=== PATIENT | female | born 1955 ===

== ENCOUNTER 2017-01-25 12:15 | Inpatient (IN) | payer BC ==
--- NOTE | 2017-01-25 12:49 | ED PDOC ---
Lower Extremity Pain/Injury Time Seen by Provider: 01/25/17 12:29 Chief Complaint (Nursing): Lower Extremity Problem/Injury Chief Complaint (Provider): Lower Extremity Problem/Injury History Per: Patient History/Exam Limitations: no limitations Onset/Duration Of Symptoms: Days (x 1 month) Current Symptoms Are (Timing): Still Present Additional Complaint(s): Andi Mcgarry is a 61 y/o female who was sent to the ED by PMD Dr. Reilly for admission. Patient has been complaining of intractable right hip and leg pain for the past month. Was told she has a deformity at the L4-L5 region of her lumbar spine. PMD: Chino Reilly Past Medical History Reviewed: Historical Data, Nursing Documentation, Vital Signs Vital Signs: Last Vital Signs Temp 98.4 F 01/25/17 12:19 Pulse 64 01/25/17 12:19 Resp 18 01/25/17 12:19 BP 150/93 H 01/25/17 12:19 Pulse Ox 100 01/25/17 12:19 - Medical History PMH: No Chronic Diseases - Family History Family History: States: Unknown Family Hx - Social History Current smoker - smoking cessation education provided: No Alcohol: None Drugs: Denies - Home Medications Home Medications: Ambulatory Orders Medication Instructions Recorded Cholecalciferol (Vitamin D3) 2,000 unit PO HS 01/25/17 [Vitamin D3] Cyclobenzaprine [Flexeril] 10 mg PO HS PRN 01/25/17 Dexamethasone [Decadron] 1 mg PO ASDIR 01/25/17 Olmesartan Medoxomil [Benicar] 20 mg PO HS 01/25/17 traMADol [Ultram] 50 mg PO BID PRN 01/25/17 - Allergies Allergies/Adverse Reactions: Allergies Allergy/AdvReac Type Severity Reaction Status Date / Time No Known Allergies Allergy Verified 01/25/17 12:22 Review of Systems ROS Statement: Except As Marked, All Systems Reviewed And Found Negative Constitutional: Negative for: Fever, Chills Musculoskeletal: Positive for: Back Pain, Leg Pain (Right leg and hip pain) Physical Exam - Reviewed Nursing Documentation Reviewed: Yes Vital Signs Reviewed: Yes - Physical Exam Appears: Positive for: Non-toxic, No Acute Distress Back: Positive for: Vertebral Tenderness, Decreased ROM, Muscle Spasm - Laboratory Results Result Diagrams: 01/25/17 13:01 01/25/17 13:01 - ECG ECG Rhythm: Positive for: Normal QRS, Normal ST Segment, Sinus Bradycardia ( 58bpm) Rate: 58 O2 Sat by Pulse Oximetry: 100 (RA) Pulse Ox Interpretation: Normal - Radiology X-Ray: Interpreted by Me X-Ray Interpretation: No Acute Disease Medical Decision Making Medical Decision Making: Time:12:39 Plan: --EKG --CMP --CBC --PTT --Prothrombin time --Blood type and screen --CXR 2 views --Urinalysis -- Orthopedic consult placed-[facility] --PT to be admitted to [facility] for intractable back pain. pt given torodol IV 30mg. Scribe Attestation: Documented by Meghan Linn, acting as a scribe for Esperanza Nolan PA-C Provider Scribe Attestation: All medical record entries made by the Scribe were at my direction and personally dictated by me. I have reviewed the chart and agree that the record accurately reflects my personal performance of the history, physical exam, medical decision making, and the department course for this patient. I have also personally directed, reviewed, and agree with the discharge instructions and disposition. Disposition - Clinical Impression Clinical Impression: Intractable back pain - Patient ED Disposition Is Patient to be Admitted: Yes - Disposition Disposition Time: 14:24 Condition: STABLE Forms: [facility] ([place]) - Pt Status Changed To: Hospital Disposition Of: Observation
[2017-01-25 13:13] LABS: BASO % 0.4 % (0.0-2.0); EOS % 0.1 % (0.0-4.0); HEMATOCRIT 41.4 % (34.0-47.0); LYMPH # 2.5 K/uL (1.0-4.3); LYMPH % 29.4 % (20.0-40.0); MEAN CELL VOLUME 83.9 fl (81.0-99.0); MEAN CORPUSCULAR HEMOGLOBIN 28.5 pg (27.0-31.0); MONO # 0.4 K/uL (0.0-0.8); MONO % 4.7 % (0.0-10.0); NEUT # 5.5 K/uL (1.8-7.0); NEUT % 65.4 % (50.0-75.0); RED CELL DISTRIBUTION WIDTH 14.4 % (11.5-14.5); WHITE BLOOD COUNT 8.5 K/uL (4.8-10.8)
[2017-01-25 13:19] LABS: ALB/GLOB RATIO 1.5 (1.0-2.1); ALKALINE PHOSPHATASE 84 U/L (38-126); ALT/SGPT 28 U/L (9-52); AST/SGOT 19 U/L (14-36); BILIRUBIN,TOTAL 0.9 mg/dl (0.2-1.3); BLOOD UREA NITROGEN 14 mg/dl (7-17); CALCIUM 10.2 mg/dL (8.4-10.2); CARBON DIOXIDE 26 mmol/L (22-30); CHLORIDE 106 mmol/L (98-107); GFR AFRICAN-AMERICAN > 60; GLUCOSE,RANDOM 98 mg/dL (65-105); POTASSIUM 3.9 MMOL/L (3.6-5.0); SODIUM 143 mmol/l (132-148); TOTAL PROTEIN 8.1 G/DL (6.3-8.2)
[2017-01-25 13:44] LABS: RBC URINE 2 /hpf (0-3); URINE BILIRUBIN NEGATIVE (NEGATIVE); URINE BLOOD NEGATIVE (NEGATIVE); URINE COLOR YELLOW (YELLOW); URINE GLUCOSE (UA) NEG (Normal); URINE KETONE NEGATIVE (NEGATIVE); URINE LEUKOCYTE ESTERASE NEG Leu/uL (Negative); URINE PROTEIN NEGATIVE (NEGATIVE); URINE UROBILINOGEN 0.2-1.0 mg/dL (0.2-1.0); WBC URINE < 1 /hpf (0-5)
[2017-01-25 13:55] LABS: PARTIAL THROMBOPLASTIN TIME 33.8 Seconds (25.6-37.1)
--- NOTE | 2017-01-25 14:35 | RAD ---
HISTORY: medical eval COMPARISON: No prior. TECHNIQUE: Chest PA and lateral FINDINGS: LUNGS: There appears to be some minor linear atelectasis and or scarring left lung base. Lung schaefer are otherwise clear PLEURA: No significant pleural effusion identified. No pneumothorax apparent. CARDIOVASCULAR: Normal. OSSEOUS STRUCTURES: Mild multilevel degenerative spondylosis of the thoracic spine VISUALIZED UPPER ABDOMEN: Normal. OTHER FINDINGS: None. IMPRESSION: Minor linear atelectasis and or scarring left lung base.
[2017-01-25] MEDS ORDERED: Pneumococcal 23-Valent Vaccine IM ONE (18:10)
[2017-01-25] MEDS ORDERED: HYDROmorphone 0.5 mg/0.5 ml ISec IVP PRN (18:30)
[2017-01-26] MEDS: Dextrose 5%/0.45% NS 1,000 ML IV SCH ×2 (06:06→13:20)
--- NOTE | 2017-01-26 07:02 | CP.PCM.HP ---
History of Present Illness - History of Present Illness History of Present Illness: This is a 61 y/o female with hx of HTN , on Benicar who has been fairly stable till few weeks ago,she started having progressive lower back pain eventually causing right lower ext pain . She had sought evaluation and treatment with Phys therapy and chiropractic and was given pain medications but to no avail. Despite all conservative measures, symptoms however worsened and advised MRI which showed advanced degenerative disc disease of the L4L5 and complete dessication. Also noted were two herniated discs in the area. One is a large herniated disc extruding into the right lateral process and markedly truncating into the right ventral thecal sac. She denies having been involved in a car accident or any trauma. 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 Past Medical Hx HTN, hyperlipidemia Present on Admission - Present on Admission Any Indicators Present on Admission: No History of DVT/PE: No History of Uncontrolled Diabetes: No Urinary Catheter: No Decubitus Ulcer Present: No Review of Systems - Musculoskeletal Musculoskeletal: Back Pain, Muscle Weakness, Radiating Pain into Limb Past Patient History - Past Medical History & Family History Past Medical History?: Yes - Past Social History Smoking Status: Never Smoked - CARDIAC Hx Hypertension: Yes - PULMONARY Hx Respiratory Disorders: No - NEUROLOGICAL Hx Neurological Disorder: No - HEENT Hx HEENT Problems: No - RENAL Hx Chronic Kidney Disease: No - ENDOCRINE/METABOLIC Hx Endocrine Disorders: No - HEMATOLOGICAL/ONCOLOGICAL Hx Blood Disorders: No - INTEGUMENTARY Hx Dermatological Problems: No - MUSCULOSKELETAL/RHEUMATOLOGICAL Hx Falls: No - GASTROINTESTINAL Hx Gastrointestinal Disorders: No - GENITOURINARY/GYNECOLOGICAL Hx Genitourinary Disorders: No - PSYCHIATRIC Hx Psychophysiologic Disorder: No Hx Substance Use: No - SURGICAL HISTORY Hx Surgeries: Yes Hx Section: Yes (3) Hx Tubal Ligation: Yes Other/Comment: [place] teeth removed - ANESTHESIA Hx Anesthesia: Yes Hx Anesthesia Reactions: No Meds Allergies/Adverse Reactions: Allergies Allergy/AdvReac Type Severity Reaction Status Date / Time No Known Allergies Allergy Verified 01/25/17 12:22 Physical Exam - Head Exam Head Exam: NORMAL INSPECTION - Eye Exam Eye Exam: Normal appearance - Respiratory Exam Respiratory Exam: Clear to Auscultation Bilateral - Cardiovascular Exam Cardiovascular Exam: REGULAR RHYTHM - GI/Abdominal Exam GI & Abdominal Exam: Normal Bowel Sounds - Neurological Exam Neurological exam: CN II-XII Intact, Oriented x3 - Psychiatric Exam Psychiatric exam: Anxious - Skin Skin Exam: Normal Color Results - Vital Signs Recent Vital Signs: Last Vital Signs Temp 97.4 F L 01/26/17 00:42 Pulse 55 L 01/26/17 00:42 Resp 20 01/26/17 00:42 BP 101/64 01/26/17 00:42 Pulse Ox 98 01/26/17 00:42 - Labs Result Diagrams: 01/25/17 13:01 01/25/17 13:01 Assessment & Plan (1) Lumbar disc herniation with radiculopathy Status: Acute (2) Hypertension Status: Acute (3) Intractable back pain Status: Acute - Assessment and Plan (Free Text) Plan: will keep NPO Labs reviewed IV hydration Pain meds Consult with Dr Acosta Patient will need surgery Medically stable for laminectomy.
[2017-01-26] MEDS ORDERED: Succinylcholine 200 mg/10 ml Inj IV ONE (07:31)
[2017-01-26] MEDS ORDERED: Propofol 10 mg/ml Inj (20 ML) ONE (07:31)
[2017-01-26] MEDS ORDERED: Sevoflurane - Inhalation Anesthetic Liq (250 ml) ONE (07:34)
--- NOTE | 2017-01-26 07:54 | CP.PCM.CON ---
History of Present Illness - History of Present Illness History of Present Illness: Dr. Acosta asked to see this 61 yo female admitted with intractable LBP radiating to right hip down to her calf with a burning sensation,no relief prior with conservative management,difficulty ambulating,ambulates holding on,pt seen in ER in the past and Orthopedist dx with Sciatica and Gluteal spasm,symptoms worsening,pt sent for MRI showing Right HNP at L4-5,images reviewed by Dr. Acosta and pt examined,surgical and non surgical options discussed with pt,due to worsening ability to ambulate, to perform ADL's and work pt agree's to have a proposed Right Decompressive Lumbar Laminectomy L4-5,denies pelvic paresthesias or incontinance. 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 Alcohol: Occasional Drugs: Denies Home Situation {Lives}: With Family Domestic Violence: Negative - CARDIAC Hx Hypertension: Yes - PULMONARY Hx Respiratory Disorders: No - NEUROLOGICAL Hx Neurological Disorder: No - HEENT Hx HEENT Problems: No - RENAL Hx Chronic Kidney Disease: No - ENDOCRINE/METABOLIC Hx Endocrine Disorders: No - HEMATOLOGICAL/ONCOLOGICAL Hx Blood Disorders: No - INTEGUMENTARY Hx Dermatological Problems: No - MUSCULOSKELETAL/RHEUMATOLOGICAL Hx Falls: No - GASTROINTESTINAL Hx Gastrointestinal Disorders: No - GENITOURINARY/GYNECOLOGICAL Hx Genitourinary Disorders: No - PSYCHIATRIC Hx Psychophysiologic Disorder: No Hx Substance Use: No - SURGICAL HISTORY Hx Surgeries: Yes Hx Section: Yes (3) Hx Tubal Ligation: Yes Other/Comment: [place] teeth removed - ANESTHESIA Hx Anesthesia: Yes Hx Anesthesia Reactions: No Meds Home Medications: Home Medication List Medication Instructions Recorded Confirmed Type Methylprednisolone [Medrol Dose 4 mg PO DAILY #21 mg 01/27/17 Rx Pack (21 tabs)] Allergies/Adverse Reactions: Allergies Allergy/AdvReac Type Severity Reaction Status Date / Time No Known Allergies Allergy Verified 01/25/17 12:22 - Medications Medications: Current Medications Hydromorphone HCl (Dilaudid) 1 mg IVP Q4 PRN PRN Reason: Pain, severe (8-10) Last Admin: 01/25/17 23:55 Dose: 1 mg Dextrose/Sodium Chloride (Dextrose 5%/0.45% Ns 1000 Ml) 1,000 mls @ 60 mls/hr IV .[id number] [facility] Stop: 01/26/17 23:59 Last Admin: 01/26/17 06:06 Dose: 60 mls/hr Losartan Potassium (Cozaar) 50 mg PO HS [facility] Last Admin: 01/25/17 21:25 Dose: 50 mg Physical Exam - Constitutional Appears: Well, Non-toxic, No Acute Distress - Head Exam Head Exam: ATRAUMATIC, NORMAL INSPECTION, NORMOCEPHALIC - Eye Exam Eye Exam: EOMI, Normal appearance, PERRL Pupil Exam: NORMAL ACCOMODATION - ENT Exam ENT Exam: Mucous Membranes Moist - Neck Exam Neck exam: Positive for: Normal Inspection - Respiratory Exam Respiratory Exam: Clear to Auscultation Bilateral - Cardiovascular Exam Cardiovascular Exam: REGULAR RHYTHM - GI/Abdominal Exam GI & Abdominal Exam: Normal Bowel Sounds, Soft - Rectal Exam Rectal Exam: Deferred - Extremities Exam Extremities exam: Positive for: normal inspection, pedal pulses present - Back Exam Back exam: vertebral tenderness - Neurological Exam Neurological exam: Alert, Oriented x3 Additional comments: MESA x 4 antigravity limited RLE secondary to pain and weakness,+ 2 DTR's, decreased sensation to right L4-5 dermatome,neg babinski or pelvic paresthesias - Psychiatric Exam Psychiatric exam: Normal Affect, Normal Mood - Skin Skin Exam: Dry, Intact Results - Vital Signs Recent Vital Signs: Last Vital Signs Temp 97.4 F L 01/26/17 00:42 Pulse 55 L 01/26/17 00:42 Resp 20 01/26/17 00:42 BP 101/64 01/26/17 00:42 Pulse Ox 98 01/26/17 00:42 - Labs Result Diagrams: 01/27/17 05:50 01/27/17 05:50 Assessment & Plan - Assessment and Plan (Free Text) Assessment: Lumbar Spondylosis and HNP Right L4-5 with RLE Radiculapathy Plan: pt to have proposed Right Lumbar HemiLaminotomy,Discectomy L4-5,risks and benefits d/w pt,expressed understanding and wishes to proceed.
[2017-01-26] MEDS ORDERED: Absorbable Gelatin Sponge Size 12-7 ONE (07:56)
[2017-01-26] MEDS ORDERED: Bupivacaine HCl 0.25% PF (30 ml) Inj ONE (07:56)
[2017-01-26] MEDS ORDERED: APROTININ/FIBRINOGEN(TISSEEL) ONE (07:57)
[2017-01-26] MEDS ORDERED: Absorbable Gelatin Sponge Size 100 ONE (07:57)
[2017-01-26] MEDS ORDERED: Thrombin Topical 5,000 IU Spray Kit ONE (07:57)
[2017-01-26] MEDS ORDERED: Bacitracin Ointment 30 GM TUBE ONE (07:57)
[2017-01-26] MEDS ORDERED: Sodium Chloride 0.9% 10 ML IV ONE (07:58)
[2017-01-26] MEDS ORDERED: Lidocaine 1% Inj (20ml) ONE (07:59)
[2017-01-26 08:42] LABS: PARTIAL THROMBOPLASTIN TIME 31.3 Seconds (25.6-37.1)
[2017-01-26] MEDS ORDERED: HYDROmorphone 0.5 mg/0.5 ml ISec IVP PRN (09:10)
[2017-01-26] MEDS ORDERED: Lactated Ringer's 1,000 ML IV ONE (09:30)
[2017-01-26] MEDS ORDERED: Rocuronium 10 mg/ml (5 ml) ONE (09:46)
[2017-01-26] MEDS ORDERED: Sodium Chloride 0.9% 200 ML IV ONE (09:50)
[2017-01-26] MEDS ORDERED: Dexamethasone 4 mg/1 ml ONE (10:20)
[2017-01-26] MEDS ORDERED: HEMOSTATIC MATRIX 10 ML DIS.NEEDLE TOP ONE (10:24)
[2017-01-26] MEDS ORDERED: Neostigmine Methylsulfate 3mg/3ml Syringe IV ONE (10:56)
[2017-01-26] MEDS ORDERED: Neostigmine Methylsulfate 2 MG/2 ML ML IV ONE (10:56)
[2017-01-26] MEDS ORDERED: Desflurane Inhalation Anesthetic Liq (240 ml) ONE (11:05)
[2017-01-26] MEDS ORDERED: Naloxone 0.4 mg/ml Inj (Adult) ONE (11:11)
--- NOTE | 2017-01-26 11:43 | RAD ---
PROCEDURE: Intraoperative Fluoroscopy. HISTORY: LUMBAR MICRO DISCECTOMY/LAMINECTOMY FINDINGS: Fluoroscopic assistance was provided. 10.8 seconds fluoroscopy time utilized. Radiation dose = 8.28 mGy Please refer to the operative report for additional details
[2017-01-26] MEDS ORDERED: Oxycodone/Acetaminophen 5/325 mg Tab PO PRN (13:15)
[2017-01-26] MEDS: Dexamethasone 4 MG in Sodium Chloride 0.9% 50 ML IVPB SCH ×2 (16:51→21:48)
[2017-01-26] MEDS ORDERED: ceFAZolin 1 GM in Sodium Chloride 0.9% 100 ML IVPB ONE (17:00)
--- NOTE | 2017-01-27 00:15 | CARD ---
APPROVED REPORT EKG Measurement Heart [id number] <Conclusion> Sinus bradycardia Minimal voltage criteria for LVH, may be normal variant Borderline ECG
[2017-01-27] MEDS ORDERED: ceFAZolin 1 GM in Sodium Chloride 0.9% 100 ML IVPB ONE (01:00)
[2017-01-27] MEDS: Dexamethasone 4 MG in Sodium Chloride 0.9% 50 ML IVPB SCH ×2 (04:35→10:13)
[2017-01-27 06:18] LABS: HEMATOCRIT 36.9 % (34.0-47.0); MEAN CELL VOLUME 83.7 fl (81.0-99.0); MEAN CORPUSCULAR HEMOGLOBIN 28.4 pg (27.0-31.0); MEAN CORPUSCULAR HGB CONC 33.9 g/dL (33.0-37.0); RED CELL DISTRIBUTION WIDTH 14.3 % (11.5-14.5); WHITE BLOOD COUNT 12.8 K/uL (4.8-10.8)
[2017-01-27 06:47] LABS: BLOOD UREA NITROGEN 9 mg/dl (7-17); CALCIUM 9.3 mg/dL (8.4-10.2); CARBON DIOXIDE 23 mmol/L (22-30); CHLORIDE 107 mmol/L (98-107); GFR AFRICAN-AMERICAN > 60; GLUCOSE,RANDOM 142 mg/dL (65-105); SODIUM 140 mmol/l (132-148)
--- NOTE | 2017-01-27 08:11 | OP ---
PROCEDURE DATE: 01/26/2017 PREOPERATIVE DIAGNOSIS: Lumbar herniated disk at L4-L5 on the right side. POSTOPERATIVE DIAGNOSIS: Lumbar herniated disk at L4-L5 on the right side. PROCEDURE: Right L4-L5 hemilaminotomy, medial facetectomy, removal of extruded disk fragment. Fluoroscopy has been used. Microscope has been used. SURGEON: Campbell Acosta MD AG SERVICE MANAGER: Demetra Ramos, physician surveyor instrument assistant who stayed throughout the case from the beginning to the end, helped me to perform the surgery. DESCRIPTION OF PROCEDURE: The patient was brought to the operating room, anesthetized with general endotracheal anesthesia, placed in a prone position on a Yony frame. Care was taken to protect all pressure points. Back of the lumbar area thoroughly prepped and draped in sterile manner after marking the skin lesions for lumbar laminectomy at L4-L5. After prepping and draping the area, skin had been incised. Bleeding skins had been controlled with bipolar entertainment musician. After using a Bovie entertainment musician, the paraspinal muscles have been detached, attachments of spinous process, lamina of L4-L5 on the right side. A Daina retractor has been applied to alter the facet joint of L4-L5 and fluoroscopy has been used in order to confirm this level. Under microscopic examination, the lamina of L4-L5, medial part of the facets of L4-L5 have been drilled. Drilling was continued. Drilled the top and bottom of the ligamentum flavum has seen. Drilling was also continued on the middle part of the facets until the turn of ligamentum flavum has been seen. Once this has been , medial part of the facets and ligamentum flavum has been removed. Under microscopic examination, tube has been retracted medially next to the pedicle of L5 annulus has been incised. There was a large fragment of multiple disk fragments noted in this area. All this has been removed. Nerve has been decompressed. After that, hemostasis was best achieved. Fascia across the interspinous ligaments, spinous process with 1-Vicryl, subcutaneous tissue with 3-Vicryl. Skin had been closed with intradermal 3 Vicryl stitches. The patient tolerated the procedure. After procedure, mobilized to recovery room in stabilized condition. Campbell Acosta MD [facility] # [id number]
[2017-01-27 08:45] VITALS: RESP 20
[2017-01-27 08:46] VITALS: BP 116/67; PULSE 71; TEMP 98.3; O2SAT 98
[2017-01-27] MEDS ORDERED: Enoxaparin 40 mg Syringe SC SCH (10:00)
--- NOTE | 2017-01-27 15:33 | CP.PCM.DIS ---
Provider - Provider Date of Admission: 01/25/17 13:08 Attending physician: Chino Reilly MD Time Spent in preparation of Discharge (in minutes): 35 Diagnosis - Discharge Diagnosis (1) Lumbar disc herniation with radiculopathy Status: Resolved Comment: s/p laminectomy Hospital Course - Lab Results Lab Results: Most Recent Lab Values WBC 12.8 K/uL (4.8-10.8) H D 01/27/17 05:50 RBC 4.41 Mil/uL (3.80-5.20) 01/27/17 05:50 Hgb 12.5 g/dL (12.0-16.0) 01/27/17 05:50 Hct 36.9 % (34.0-47.0) 01/27/17 05:50 MCV 83.7 fl (81.0-99.0) 01/27/17 05:50 MCH 28.4 pg (27.0-31.0) 01/27/17 05:50 MCHC 33.9 g/dL (33.0-37.0) 01/27/17 05:50 RDW 14.3 % (11.5-14.5) 01/27/17 05:50 Plt Count 198 K/uL (130-400) 01/27/17 05:50 MPV 9.0 fl (7.2-11.7) 01/25/17 13:01 Neut % (Auto) 65.4 % (50.0-75.0) 01/25/17 13:01 Lymph % (Auto) 29.4 % (20.0-40.0) 01/25/17 13:01 [place] % (Auto) 4.7 % (0.0-10.0) 01/25/17 13:01 Eos % (Auto) 0.1 % (0.0-4.0) 01/25/17 13:01 Baso % (Auto) 0.4 % (0.0-2.0) 01/25/17 13:01 Neut # 5.5 K/uL (1.8-7.0) 01/25/17 13:01 Lymph # 2.5 K/uL (1.0-4.3) 01/25/17 13:01 [place] # 0.4 K/uL (0.0-0.8) 01/25/17 13:01 Eos # 0.0 K/uL (0.0-0.7) 01/25/17 13:01 Baso # 0.0 K/uL (0.0-0.2) 01/25/17 13:01 PT 11.6 Seconds (9.8-13.1) 01/26/17 08:00 INR 1.1 (0.9-1.2) 01/26/17 08:00 APTT 31.3 Seconds (25.6-37.1) 01/26/17 08:00 Sodium 140 mmol/l (132-148) 01/27/17 05:50 Potassium 4.0 MMOL/L (3.6-5.0) 01/27/17 05:50 Chloride 107 mmol/L (98-107) 01/27/17 05:50 Carbon Dioxide 23 mmol/L (22-30) 01/27/17 05:50 Anion Gap 14 (10-20) 01/27/17 05:50 BUN 9 mg/dl (7-17) 01/27/17 05:50 Creatinine 0.6 mg/dL (0.7-1.2) L 01/27/17 05:50 Est GFR ( Amer) > 60 01/27/17 05:50 Est GFR (Non-Af Amer) > 60 01/27/17 05:50 Random Glucose 142 mg/dL (65-105) H 01/27/17 05:50 Calcium 9.3 mg/dL (8.4-10.2) 01/27/17 05:50 Total Bilirubin 0.9 mg/dl (0.2-1.3) 01/25/17 13:01 AST 19 U/L (14-36) 01/25/17 13:01 ALT 28 U/L (9-52) 01/25/17 13:01 Alkaline Phosphatase 84 U/L (38-126) 01/25/17 13:01 Total Protein 8.1 G/DL (6.3-8.2) 01/25/17 13:01 Albumin 4.8 g/dL (3.5-5.0) 01/25/17 13:01 Globulin 3.2 gm/dL (2.2-3.9) 01/25/17 13:01 Albumin/Globulin Ratio 1.5 (1.0-2.1) 01/25/17 13:01 Urine Color Yellow (YELLOW) 01/25/17 13:08 Urine Clarity Clear (Clear) 01/25/17 13:08 Urine pH 6.0 (5.0-8.0) 01/25/17 13:08 Ur Specific [place] 1.014 (1.003-1.030) 01/25/17 13:08 Urine Protein Negative mg/dL (NEGATIVE) 01/25/17 13:08 Urine Glucose (UA) Neg mg/dL (Normal) 01/25/17 13:08 Urine Ketones Negative mg/dL (NEGATIVE) 01/25/17 13:08 Urine Blood Negative (NEGATIVE) 01/25/17 13:08 Urine Nitrate Negative (NEGATIVE) 01/25/17 13:08 Urine Bilirubin Negative (NEGATIVE) 01/25/17 13:08 Urine Urobilinogen 0.2-1.0 mg/dL (0.2-1.0) 01/25/17 13:08 Ur Leukocyte Esterase Neg [place]/uL (Negative) 01/25/17 13:08 Urine RBC (Auto) 2 /hpf (0-3) 01/25/17 13:08 Urine Microscopic WBC < 1 /hpf (0-5) 01/25/17 13:08 Ur Squamous Epith Cells < 1 /hpf (0-5) 01/25/17 13:08 Blood Type O POSITIVE 01/25/17 13:03 Antibody Screen Negative 01/25/17 13:03 BBK History Checked No verified bt 01/25/17 13:03 - Hospital Course Hospital Course: Patient seen and examined this AM. 61 year old female with hx of htn s/p laminectomy today. Feeling well. Dressing clean dry and intact. No complaints offered. Patient awaiting back brace. Will follow up with Dr. Reilly on Monday. - Date & Time of H&P Date of H&P: 01/26/17 Time of H&P: 06:52 Discharge Exam - Head Exam Head Exam: NORMAL INSPECTION - Eye Exam Eye Exam: EOMI, Normal appearance, PERRL - ENT Exam ENT Exam: Mucous Membranes Moist - Respiratory Exam Respiratory Exam: UNREMARKABLE - Cardiovascular Exam Cardiovascular Exam: REGULAR RHYTHM - GI/Abdominal Exam GI & Abdominal Exam: Unremarkable - Back Exam Additional comments: abdominal binder in place, dressing visualized, clean, dry and intact Discharge Plan - Discharge Medications Prescriptions: Methylprednisolone [Medrol Dose Pack (21 tabs)] 4 mg PO DAILY #21 mg - Follow Up Plan Condition: STABLE Disposition: HOME/ ROUTINE Instructions: Laminectomy (DC), Back Pain (GEN) Additional Instructions: [facility] [phone] Monitor Tech: Aiden to be fitted and delivered on MondayJanuary 31. Referrals: Campbell Acosta MD [Staff Provider] - Chino Reilly MD [Staff Provider] -
== END 2017-01-27 16:27 | disposition home or self-care (01) | DRG 520 ==
LOC: H.ER 12:15 → H.ERHOLD 13:08 → H.MEDSURG1 17:58
PROVIDERS: ADMIT Family Medicine; ATTEND Family Medicine
PROC: 00NY3ZZ Release Lumbar Spinal Cord, Percutaneous Approach (ICD-10-PCS; principal; 2017-01-26 09:45)
DX: M51.16 Intervertebral disc disorders with radiculopathy, lumbar region (principal); I10 Essential (primary) hypertension; Z98.51 Tubal ligation status; E78.5 Hyperlipidemia, unspecified; M47.26 Other spondylosis with radiculopathy, lumbar region

== ENCOUNTER 2017-02-05 11:42 | Observation (INO) | payer BC ==
--- NOTE | 2017-02-05 12:29 | ED PDOC ---
HPI: General Adult Time Seen by Provider: 02/05/17 12:03 Chief Complaint (Nursing): Abnormal Skin Integrity Chief Complaint (Provider): Abnormal Skin Integrity History Per: Patient History/Exam Limitations: no limitations Current Symptoms Are (Timing): Still Present Additional Complaint(s): 61 y/o female presents to the emergency department with a complaint of a drainage from an incision located to the lower back after laminectomy procedure that was completed about 10 days ago. Patient was wearing a brace that was irritating her back and progressively became worse. States she tried calling surgeon for advise but they never called her back. Denies pain or fever. Past Medical History Reviewed: Historical Data, Nursing Documentation, Vital Signs - Medical History PMH: HTN Denies: Chronic Kidney Disease - Family History Family History: States: Unknown Family Hx - Home Medications Home Medications: Ambulatory Orders Medication Instructions Recorded Cholecalciferol (Vitamin D3) 2,000 unit PO HS 01/25/17 [Vitamin D3] Cyclobenzaprine [Flexeril] 10 mg PO HS PRN 01/25/17 Olmesartan Medoxomil [Benicar] 20 mg PO HS 01/25/17 traMADol [Ultram] 50 mg PO BID PRN 01/25/17 Methylprednisolone [Medrol Dose 4 mg PO DAILY #21 mg 01/27/17 Pack (21 tabs)] Cephalexin [cephalexin] 500 mg PO QID #28 cap 02/05/17 - Allergies Allergies/Adverse Reactions: Allergies Allergy/AdvReac Type Severity Reaction Status Date / Time No Known Allergies Allergy Verified 01/25/17 12:22 Review of Systems ROS Statement: Except As Marked, All Systems Reviewed And Found Negative Constitutional: Negative for: Fever Musculoskeletal: Positive for: Other (Brace was irritating her back. Drainage from incision located to the lower back. ). Negative for: Back Pain (Brace was irritating her back. Drainage from incision located to the lower back. ) Physical Exam - Reviewed Nursing Documentation Reviewed: Yes Vital Signs Reviewed: Yes - Physical Exam Appears: Positive for: Non-toxic, No Acute Distress Head Exam: Positive for: ATRAUMATIC, NORMAL INSPECTION, NORMOCEPHALIC Skin: Positive for: Normal Color, Warm, Dry Back: Positive for: Other (Lower back midline incision noted with serosanguineous drainage. No erythema, induration, or fluctuance. Minuscule wound dehiscence noted to the lower region of the incision. ). Negative for: Normal Inspection Neurologic/Psych: Positive for: Alert, Oriented (x3) - Laboratory Results Result Diagrams: 02/05/17 12:50 02/05/17 12:50 Medical Decision Making Medical Decision Making: Time: 12:22 Initial impression: Initial plan: --Lumbar Spine w. contrast CT --CMP --CBC w/ diff --Reevaluation Time: 1200 --Admit to hospital routine: On ED OBS for back pain Any further documentation will be included within ED Obs section of chart. Scribe Attestation: Documented by Elizabeth Magaña, acting as a scribe for Leanne Singh MD. Provider Scribe Attestation: All medical record entries made by the Scribe were at my direction and personally dictated by me. I have reviewed the chart and agree that the record accurately reflects my personal performance of the history, physical exam, medical decision making, and the department course for this patient. I have also personally directed, reviewed, and agree with the discharge instructions and disposition. ED OBSERVATION Discharge: Yes Date of observation admission: 02/05/17 Time of observation admission: 12:00 - Observation admission statement Patient is being placed in observation because:: back pain - Goals of Observation Goals of observation are:: resolution of symptoms - Progress Note Progress Note: Time: 14:54 --Lumbar Spine CT FINDINGS: VERTEBRAE: Unremarkable. No fracture. Normal alignment. DISCS/SPINAL CANAL/NEURAL FORAMINA: L1-2: Unremarkable. L2-3: Unremarkable. L3-4: Unremarkable. L4-5: Postoperative changes, disc space narrowing at this level is mild, this appears at the site of the discectomy and veronica laminectomy. L5-S1: Broad based bulging annulus without focal disc herniation. PARASPINAL SOFT TISSUES: Asymmetry of the paraspinous soft tissue muscles on the right compared to the left. This extends from L3 through L5. This includes paraspinous muscle asymmetry, air within the soft tissues at the site of the laminectomy, extension to the subcutaneous tissues including a track extending to the skin surface. Hounsfield unit values of fluid less than 10. The well-formed fluid collections subcutaneous spaces interposed between this paraspinous muscle and skin measures 2 x 3.8 cm. This terminates in the skin has a small tract. Faint contrast enhancement at the level of L5-S1 to the left of the midline without well-formed collection. This likely represents a sequela of prior surgery. There is no compelling evidence for diskitis/osteomyelitis as the bony endplates are preserved, the there is disc space narrowing at L4-5. OTHER FINDINGS: None. IMPRESSION: Postoperative changes following veronica laminectomy at L4-5 and micro discectomy. This includes asymmetry, edema within the paraspinous soft tissues on the right. This extends to a subcutaneous fluid collection mean Hounsfield unit values less than 10. This subsequently extends as a faint sinus tract to the skin surface. No evidence of discitis/osteomyelitis on this contrast-enhanced CT scan of the lumbar spine Communication of results: I discussed findings directly with the attending physician in the emergency room Leanne Gottlieb M.D. at 14:43. Time: 15:09 --Spoke to who informed results to me and recommended Ancef here and discharge with Keflex. --Tell patient "not to worry about it" and to keep changing the dressing. Follow up with him on 02/08/2017. --Ancef 1 gm IV 02/05/17 16:30 --Patient resting comfortably. Disposition - Clinical Impression Clinical Impression: Wound drainage - Disposition Disposition Time: 16:54 Condition: STABLE
[2017-02-05 13:03] LABS: BASO # 0.1 K/uL (0.0-0.2); BASO % 0.8 % (0.0-2.0); EOS # 0.1 K/uL (0.0-0.7); EOS % 1.4 % (0.0-4.0); HEMATOCRIT 40.3 % (34.0-47.0); LYMPH # 3.2 K/uL (1.0-4.3); LYMPH % 37.4 % (20.0-40.0); MEAN CELL VOLUME 83.6 fl (81.0-99.0); MEAN CORPUSCULAR HEMOGLOBIN 28.2 pg (27.0-31.0); MEAN CORPUSCULAR HGB CONC 33.8 g/dL (33.0-37.0); MEAN PLATELET VOLUME 8.3 fl (7.2-11.7); MONO # 0.6 K/uL (0.0-0.8); MONO % 6.5 % (0.0-10.0); NEUT # 4.6 K/uL (1.8-7.0); NEUT % 53.9 % (50.0-75.0); RED CELL DISTRIBUTION WIDTH 14.3 % (11.5-14.5); WHITE BLOOD COUNT 8.6 K/uL (4.8-10.8)
[2017-02-05 13:18] LABS: ALB/GLOB RATIO 1.3 (1.0-2.1); ALKALINE PHOSPHATASE 94 U/L (38-126); ALT/SGPT 27 U/L (9-52); AST/SGOT 23 U/L (14-36); BLOOD UREA NITROGEN 14 mg/dl (7-17); CALCIUM 9.5 mg/dL (8.4-10.2); CARBON DIOXIDE 26 mmol/L (22-30); CHLORIDE 107 mmol/L (98-107); GFR AFRICAN-AMERICAN > 60; GLUCOSE,RANDOM 100 mg/dL (65-105); POTASSIUM 4.4 MMOL/L (3.6-5.0); SODIUM 141 mmol/l (132-148); TOTAL PROTEIN 7.2 G/DL (6.3-8.2)
[2017-02-05] MEDS ORDERED: Sodium Chloride 0.9% 50 ML IV ONE (13:34)
[2017-02-05] MEDS ORDERED: Iohexol 300 100 ML IJ ONE (13:34)
--- NOTE | 2017-02-05 14:56 | CT ---
PROCEDURE: CT Lumbar Spine without contrast HISTORY: Serous Drainage s/p laminectomy. Otherwise no complaints common no headache or other findings on physical examination per my discussion with the attending physician in the emergency department at the time of the verbal communication of results. Relevant surgical history: 01/26/2017 discectomy and laminectomy COMPARISON: None. TECHNIQUE: Axial computed tomography images were obtained of the lumbar spine without the use of intravenous contrast. Coronal and sagittal reformatted images were created and reviewed. 95 cc Omnipaque 300 administered. Radiation dose: Total exam DLP = 1359.65 mGy-cm. This CT exam was performed using one or more of the following dose reduction techniques: Automated exposure control, adjustment of the mA and/or kV according to patient size, and/or use of iterative reconstruction technique. FINDINGS: VERTEBRAE: Unremarkable. No fracture. Normal alignment. DISCS/SPINAL CANAL/NEURAL FORAMINA: L1-2: Unremarkable. L2-3: Unremarkable. L3-4: Unremarkable. L4-5: Postoperative changes, disc space narrowing at this level is mild, this appears at the site of the discectomy and veronica laminectomy. L5-S1: Broad based bulging annulus without focal disc herniation. PARASPINAL SOFT TISSUES: Asymmetry of the paraspinous soft tissue muscles on the right compared to the left. This extends from L3 through L5. This includes paraspinous muscle asymmetry, air within the soft tissues at the site of the laminectomy, extension to the subcutaneous tissues including a track extending to the skin surface. Hounsfield unit values of fluid less than 10. The well-formed fluid collections subcutaneous spaces interposed between this paraspinous muscle and skin measures 2 x 3.8 cm. This terminates in the skin has a small tract. Faint contrast enhancement at the level of L5-S1 to the left of the midline without well-formed collection. This likely represents a sequela of prior surgery. There is no compelling evidence for diskitis/osteomyelitis as the bony endplates are preserved, the there is disc space narrowing at L4-5. OTHER FINDINGS: None. IMPRESSION: Postoperative changes following veronica laminectomy at L4-5 and micro discectomy. This includes asymmetry, edema within the paraspinous soft tissues on the right. This extends to a subcutaneous fluid collection mean Hounsfield unit values less than 10. This subsequently extends as a faint sinus tract to the skin surface. No evidence of discitis/osteomyelitis on this contrast-enhanced CT scan of the lumbar spine Communication of results: I discussed findings directly with the attending physician in the emergency room Leanne Gottlieb M.D. at 14:43.
[2017-02-05] MEDS ORDERED: ceFAZolin 1 GM in Sodium Chloride 0.9% 100 ML IVPB STA (15:03)
== END 2017-02-05 17:15 | disposition home or self-care (01) ==
LOC: H.ER 11:42 → H.EROBSV 12:00
PROVIDERS: ADMIT Emergency Medicine; ATTEND Emergency Medicine
DX: T81.89XA Other complications of procedures, not elsewhere classified, initial encounter (principal); M54.5 Low back pain; Z98.890 Other specified postprocedural states; I10 Essential (primary) hypertension
CPT/HCPCS: 72132; 80053; 85025; 96365; 99283; G0378; J0690; Q9967